=== PATIENT | male | born 1980 | race Caucasian/White ===

== ENCOUNTER 2018-01-05 17:48 | Emergency (ER) | payer SELFPAY ==
[~2018-01-05] VITALS: Ht 175.3 cm; Wt 72.6 kg
[2018-01-05] MEDS ORDERED: SODIUM CHLORIDE 0.9% 1000ML 1,000 ML IV SCH (19:15)
[2018-01-05 20:04] LABS: BASOPHILS # (AUTO) 0.1 (0.0-0.1); BASOPHILS % 0.5 % (0.0-1.0); EOSINOPHILS # (AUTO) 0.3 (0.0-0.4); EOSINOPHILS % 3.1 % (0.0-6.0); HEMOGLOBIN 15.8 g/dL (14.0-18.0); LYMPHOCYTES # (AUTO) 2.7 (1.0-3.2); LYMPHOCYTES % 27.8 % (18.0-39.1); MEAN CORPUSCULAR HEMOGLOBIN 31.2 pg (28-32); MEAN CORPUSCULAR HGB CONC 35.1 g/dL (31-35); MEAN CORPUSCULAR VOLUME 88.8 fL (81-99); MONOCYTES # (AUTO) 0.7 (0.2-0.8); MONOCYTES % 7.5 % (4.4-11.3); NEUTROPHILS # (AUTO) 5.8 (2.1-6.9); NEUTROPHILS % 60.6 % (38.7-80.0); PLATELET COUNT 255 x10e3/uL (140-360); RED BLOOD COUNT 5.07 x10e6/uL (4.3-5.7); RED CELL DISTRIBUTION WIDTH 12.7 % (11.7-14.4)
[2018-01-05 20:20] LABS: BILIRUBIN,URINE NEGATIVE (NEGATIVE); CLARITY,URINE CLEAR (CLEAR); COLOR,URINE YELLOW (YELLOW); KETONES,URINE NEGATIVE (NEGATIVE); LEUKOCYTE ESTERASE ,URINE NEGATIVE (NEGATIVE); NITRITE,URINE NEGATIVE (NEGATIVE); PROTEIN,URINE DIPSTICK TRACE (NEGATIVE); URINE UROBILINOGEN 0.2 mg/dL (0.2 - 1)
[2018-01-05 20:22] LABS: EPITHELIAL CELLS,URINE RARE /LPF; WBC,URINE (MAN) 0-5 /HPF (0-5)
[2018-01-05 20:23] LABS: ANION GAP 19.8 mmol/L (8-16); BLOOD UREA NITROGEN 17 mg/dL (7-26); BUN/CREATININE RATIO 16 (6-25); CALCIUM 10.2 mg/dL (8.4-10.2); CARBON DIOXIDE 23 mmol/L (22-29); CHLORIDE 101 mmol/L (98-107); CREATININE, SERUM 1.04 mg/dL (0.72-1.25); EST GLOMERULAR FILTRATION RATE > 60 ML/MIN (60-); GLUCOSE 79 mg/dL (74-118); MAGNESIUM 2.4 MG/DL (1.3-2.1); POTASSIUM 3.8 mmol/L (3.5-5.1); SODIUM 140 mmol/L (136-145)
--- OUTSIDE RECORDS SUMMARY | 2018-02-18 03:35 | XMS REPORT | Clinical Summary ---
Author Author [facility] Organization [facility] Address Unknown Phone Unavailable Care Team Providers Care Social Insurance Analyst Name Role Phone Fabiano Hansen MD PCP Allergies Active Allergy Reactions Severity Noted Date Comments Ketorolac Hives 08/18/2016 Tramadol Hives 08/15/2016 Current Medications Prescription Sig. Disp. Refills Start End Date Status Date methadone (DOLOPHINE) 10 Take 70 mg by mouth daily Active MG tablet , Active Problems Problem Noted Date Chest pain 08/18/2016 Encounters Date Type Specialty Care Team Description 12/22/2017 Emergency Emergency Medicine Jessenia Holloway MD Methamphetamine abuse (Primary Dx); Hallucination 06/07/2017 Emergency Emergency Medicine Stefani Burnette Drug abuse (Primary Dx); Essential hypertension; Chest pain, unspecified type 06/02/2017 Emergency Emergency Medicine Jessenia Holloway MD Methamphetamine abuse Matt Gorman MD (Primary Dx) after 01/04/2017 Social History Tobacco Use Types Packs/Day Years Used Date Current Every Day Smoker Cigarettes Smokeless Tobacco: Never Used Alcohol Use Drinks/Week oz/Week Comments Yes "last drink was a couple of weeks ago" Sex Assigned at Date Recorded Not on file Last Filed Vital Signs Vital Sign Reading Time Taken Blood Pressure 122/80 12/22/2017 9:10 PM CDT Pulse 89 12/22/2017 9:10 PM CDT Temperature 37 C (98.6 F) 12/22/2017 9:10 PM CDT Respiratory Rate 16 12/22/2017 9:10 PM CDT Oxygen Saturation 98% 12/22/2017 9:10 PM CDT Inhaled Oxygen - - Concentration Weight 33 kg (72 lb 12.8 oz) 12/22/2017 3:42 PM CDT Height 175.3 cm (5' 9") 12/22/2017 3:42 PM CDT Body Mass Index 10.75 12/22/2017 3:42 PM CDT Plan of Treatment Health Maintenance Due Date Last Done Comments INFLUENZA VACCINE 12/16/2017 Procedures Procedure Name Priority Date/Time Associated Diagnosis Comments ALCOHOL LEVEL, BLOOD STAT 12/22/2017 Results for this 4:55 PM CDT procedure are in the results section. ZZESTIMATED GFR STAT 12/22/2017 Results for this 4:55 PM CDT procedure are in the results section. URINALYSIS SCREEN AND STAT 12/22/2017 Results for this MICROSCOPY, WITH REFLEX 4:55 PM CDT procedure are in the TO CULTURE results section. SALICYLATE LEVEL STAT 12/22/2017 Results for this 4:55 PM CDT procedure are in the results section. ACETAMINOPHEN LEVEL STAT 12/22/2017 Results for this 4:55 PM CDT procedure are in the results section. URINE DRUGS OF ABUSE STAT 12/22/2017 Results for this SCREEN 4:55 PM CDT procedure are in the results section. HC COMPLETE BLD COUNT STAT 12/22/2017 Results for this W/AUTO DIFF 4:55 PM CDT procedure are in the results section. THYROID STIMULATING STAT 12/22/2017 Results for this HORMONE 4:55 PM CDT procedure are in the results section. T4, FREE STAT 12/22/2017 Results for this 4:55 PM CDT procedure are in the results section. COMPREHENSIVE METABOLIC STAT 12/22/2017 Results for this PANEL 4:55 PM CDT procedure are in the results section. URINE CULTURE STAT 12/22/2017 Results for this 4:55 PM CDT procedure are in the results section. ECG ED PRELIMINARY Routine 06/08/2017 Results for this INTERPRETATION 5:50 PM ENDODONTICS DENTIST procedure are in the results section. CT ANGIOGRAM PE CHEST STAT 06/07/2017 Results for this 4:00 PM ENDODONTICS DENTIST procedure are in the results section. XR CHEST 2 VW STAT 06/07/2017 Results for this 2:46 PM ENDODONTICS DENTIST procedure are in the results section. D-DIMER STAT 06/07/2017 Results for this 2:30 PM ENDODONTICS DENTIST procedure are in the results section. ZZESTIMATED GFR STAT 06/07/2017 Results for this 2:30 PM ENDODONTICS DENTIST procedure are in the results section. URINE DRUGS OF ABUSE STAT 06/07/2017 Results for this SCREEN 2:30 PM ENDODONTICS DENTIST procedure are in the results section. URINALYSIS SCREEN AND STAT 06/07/2017 Results for this MICROSCOPY, WITH REFLEX 2:30 PM ENDODONTICS DENTIST procedure are in the TO CULTURE results section. TROPONIN STAT 06/07/2017 Results for this 2:30 PM ENDODONTICS DENTIST procedure are in the results section. CREATINE KINASE, TOTAL STAT 06/07/2017 Results for this (CPK) 2:30 PM ENDODONTICS DENTIST procedure are in the results section. COMPREHENSIVE METABOLIC STAT 06/07/2017 Results for this PANEL 2:30 PM ENDODONTICS DENTIST procedure are in the results section. HC COMPLETE BLD COUNT STAT 06/07/2017 Results for this W/AUTO DIFF 2:30 PM ENDODONTICS DENTIST procedure are in the results section. URINE CULTURE STAT 06/07/2017 Results for this 2:30 PM ENDODONTICS DENTIST procedure are in the results section. ECG 12-LEAD STAT 06/07/2017 Results for this 2:14 PM ENDODONTICS DENTIST procedure are in the results section. ECG ED PRELIMINARY Routine 06/02/2017 Results for this INTERPRETATION 9:45 AM ENDODONTICS DENTIST procedure are in the results section. XR CHEST 1 VW PORTABLE STAT 06/02/2017 Results for this 6:02 AM ENDODONTICS DENTIST procedure are in the results section. ZZESTIMATED GFR STAT 06/02/2017 Results for this 5:23 AM ENDODONTICS DENTIST procedure are in the results section. SALICYLATE LEVEL STAT 06/02/2017 Results for this 5:23 AM ENDODONTICS DENTIST procedure are in the results section. ACETAMINOPHEN LEVEL STAT 06/02/2017 Results for this 5:23 AM ENDODONTICS DENTIST procedure are in the results section. CREATINE KINASE, TOTAL STAT 06/02/2017 Results for this (CPK) 5:23 AM ENDODONTICS DENTIST procedure are in the results section. TROPONIN STAT 06/02/2017 Results for this 5:23 AM ENDODONTICS DENTIST procedure are in the results section. HC COMPLETE BLD COUNT STAT 06/02/2017 Results for this W/AUTO DIFF 5:23 AM ENDODONTICS DENTIST procedure are in the results section. COMPREHENSIVE METABOLIC STAT 06/02/2017 Results for this PANEL 5:23 AM ENDODONTICS DENTIST procedure are in the results section. ECG 12-LEAD Routine 06/02/2017 Results for this 5:12 AM ENDODONTICS DENTIST procedure are in the results section. after 01/04/2017 Results * Urinalysis screen and microscopy, with reflex to culture (12/22/2017 4:55 PM) Only the most recent of 2 results within the time period is included. Specimen site Clean catch [facility] DEPARTMENT OF PATHOLOGY AND GENOMIC MEDICINE Color, UA Yellow [facility] DEPARTMENT OF PATHOLOGY AND GENOMIC MEDICINE Appearance, UA Clear [facility] DEPARTMENT OF PATHOLOGY AND GENOMIC MEDICINE Specific gravity, UA 1.025 1.001 - 1.035 [facility] DEPARTMENT OF PATHOLOGY AND GENOMIC MEDICINE pH, UA 6.0 5.0 - 8.5 [facility] DEPARTMENT OF PATHOLOGY AND GENOMIC MEDICINE Protein, UA Negative Negative [facility] DEPARTMENT OF PATHOLOGY AND GENOMIC MEDICINE Glucose, UA Negative Negative [facility] DEPARTMENT OF PATHOLOGY AND GENOMIC MEDICINE Ketones, UA Negative Negative [facility] DEPARTMENT OF PATHOLOGY AND GENOMIC MEDICINE Bilirubin, UA Negative Negative [facility] DEPARTMENT OF PATHOLOGY AND GENOMIC MEDICINE Blood, UA Negative Negative [facility] DEPARTMENT OF PATHOLOGY AND GENOMIC MEDICINE Nitrite, UA Negative Negative [facility] DEPARTMENT OF PATHOLOGY AND GENOMIC MEDICINE Urobilinogen, UA 2.0 (A) <2.0 [facility] DEPARTMENT OF PATHOLOGY AND GENOMIC MEDICINE Leukocyte esterase, UA Negative Negative [facility] DEPARTMENT OF PATHOLOGY AND GENOMIC MEDICINE Epithelial cells, UA Few /HPF [facility] DEPARTMENT OF PATHOLOGY AND GENOMIC MEDICINE WBC, UA 0-5 0 - 1 /HPF [facility] DEPARTMENT OF PATHOLOGY AND GENOMIC MEDICINE RBC, UA 0-5 0 - 5 /HPF [facility] DEPARTMENT OF PATHOLOGY AND GENOMIC MEDICINE Bacteria, UA None seen None seen [facility] DEPARTMENT OF PATHOLOGY AND GENOMIC MEDICINE Yeast, UA None seen [facility] DEPARTMENT OF PATHOLOGY AND GENOMIC MEDICINE Yeast with pseudohyphae, None seen [facility] PATHOLOGY AND GENOMIC MEDICINE Specimen Urine Performing Organization Address City/State/Zipcode Phone Number [facility] [place] [address] [place] [address] PATHOLOGY AND GENOMIC MEDICINE * Estimated GFR (12/22/2017 4:55 PM) Only the most recent of 3 results within the time period is included. GFR Non Af Amer >90 mL/min/1.73 m2 [facility] DEPARTMENT OF PATHOLOGY AND GENOMIC MEDICINE GFR Af Amer >90 mL/min/1.73 m2 [facility] DEPARTMENT OF Comment: PATHOLOGY AND Chronic kidney disease: <60 GENOMIC MEDICINE mL/min/1.73m2 Kidney failure: <15 mL/min/1.73m2 The estimated GFR is calculated from the IDMS-traceable Modification of Diet in Renal Disease Equation. The accuracy of the calculation is poor when the creatinine is normal. Calculated values >90 mL/min/1.73m2 are not reported. This equation has not been validated in children (<18 years), women, the elderly (>70 years), or ethnic groups other than Caucasians and Americans. Specimen Plasma specimen Performing Organization Address [facility] Phone Number [facility] [address] Center[facility] [place] [id number] PATHOLOGY AND [facility] MEDICINE * Urine drugs of abuse screen (12/22/2017 4:55 PM) Only the most recent of 2 results within the time period is included. Amphetamine screen, urine Positive (A) [facility] DEPARTMENT OF PATHOLOGY AND GENOMIC MEDICINE Methamphetamine screen, Positive (A) [facility] DEPARTMENT OF urine PATHOLOGY AND GENOMIC MEDICINE Barbiturate screen, urine Negative [facility] DEPARTMENT OF PATHOLOGY AND GENOMIC MEDICINE Benzodiazepine screen, Negative [facility] DEPARTMENT OF urine PATHOLOGY AND GENOMIC MEDICINE Cocaine screen, urine Negative [facility] DEPARTMENT OF PATHOLOGY AND GENOMIC MEDICINE Methadone screen, urine Positive (A) [facility] DEPARTMENT OF PATHOLOGY AND GENOMIC MEDICINE Opiates screen, urine Negative [facility] DEPARTMENT OF PATHOLOGY AND GENOMIC MEDICINE Phencyclidine screen, Negative [facility] DEPARTMENT OF urine PATHOLOGY AND GENOMIC MEDICINE Cannabinoid screen, urine Negative [facility] DEPARTMENT OF PATHOLOGY AND GENOMIC MEDICINE Tricyclic screen, urine Negative [facility] DEPARTMENT OF Comment: PATHOLOGY AND Drug screen minimum GENOMIC MEDICINE concentration of detectability Amphetamines 1000 ng/mL Methamphetamines 1000 ng/mL Barbiturates 300 ng/mL Benzodiazepines 300 ng/mL Cocaine 300 ng/mL Methadone 300 ng/mL Opiates 300 ng/mL Phencyclidine 25 ng/mL Cannabinoids 50 ng/mL Tricyclics 1000 ng/mL Negative test results indicates presumptive evidence of lack of clinically significant drug concentration in this urine specimen. Positive test results are presumptive evidence of clinically significant drug concentration in this urine specimen. Testing performed for medical purposes only. Specimen Urine Performing Organization Address City/[facility] Phone Number [facility] [place] [place] [place] [address] [place] [address] PATHOLOGY AND [employer] MEDICINE * CBC with platelet and differential (12/22/2017 4:55 PM) Only the most recent of 3 results within the time period is included. WBC 7.65 4.50 - 11.00 k/uL [facility] DEPARTMENT OF PATHOLOGY AND GENOMIC MEDICINE RBC 5.15 4.40 - 6.00 m/uL [facility] DEPARTMENT OF PATHOLOGY AND GENOMIC MEDICINE HGB 15.8 14.0 - 18.0 g/dL [facility] DEPARTMENT OF PATHOLOGY AND GENOMIC MEDICINE HCT 46.2 41.0 - 51.0 % [facility] DEPARTMENT OF PATHOLOGY AND GENOMIC MEDICINE MCV 89.7 82.0 - 100.0 fL [facility] DEPARTMENT OF PATHOLOGY AND GENOMIC MEDICINE MCH 30.7 27.0 - 34.0 pg [facility] DEPARTMENT OF PATHOLOGY AND GENOMIC MEDICINE MCHC 34.2 31.0 - 37.0 g/dL [facility] DEPARTMENT OF PATHOLOGY AND GENOMIC MEDICINE RDW - SD 41.0 37.0 - 55.0 fL [facility] DEPARTMENT OF PATHOLOGY AND GENOMIC MEDICINE MPV 9.3 8.8 - 13.2 fL [facility] DEPARTMENT OF PATHOLOGY AND GENOMIC MEDICINE Platelet count 254 150 - 400 k/uL [facility] DEPARTMENT OF PATHOLOGY AND GENOMIC MEDICINE Nucleated RBC 0.00 /100 WBC [facility] DEPARTMENT OF PATHOLOGY AND GENOMIC MEDICINE Neutrophils 56.3 39.0 - 69.0 % [facility] DEPARTMENT OF PATHOLOGY AND GENOMIC MEDICINE Lymphocytes 31.9 25.0 - 45.0 % [facility] DEPARTMENT OF PATHOLOGY AND GENOMIC MEDICINE Monocytes 7.2 0.0 - 10.0 % [facility] DEPARTMENT OF PATHOLOGY AND GENOMIC MEDICINE Eosinophils 3.8 0.0 - 5.0 % [facility] DEPARTMENT OF PATHOLOGY AND GENOMIC MEDICINE Basophils 0.7 0.0 - 1.0 % [facility] DEPARTMENT OF PATHOLOGY AND GENOMIC MEDICINE Specimen Blood Performing Organization Address [facility] Phone Number [address] [place] [address] PATHOLOGY AND GENOMIC MEDICINE * Urine culture (12/22/2017 4:55 PM) Only the most recent of 2 results within the time period is included. Urine culture SEE COMMENTComment: [facility] DEPARTMENT OF Bacteriuria screen negative. PATHOLOGY AND GENOMIC MEDICINE Specimen Urine Performing Organization Address [facility] Phone Number [address] [place] [address] PATHOLOGY AND [facility] MEDICINE * Thyroid stimulating hormone (12/22/2017 4:55 PM) TSH 3.84 0.27 - 4.20 uIU/mL [facility] DEPARTMENT OF PATHOLOGY AND GENOMIC MEDICINE Specimen Plasma specimen Performing Organization Address [facility] Phone Number [address] [place] [address] PATHOLOGY AND [facility] MEDICINE * T4, free (12/22/2017 4:55 PM) T4, free 1.45 0.90 - 1.70 ng/dL [facility] DEPARTMENT OF PATHOLOGY AND GENOMIC MEDICINE Specimen Plasma specimen Performing Organization Address [facility] Phone Number [address] [place] [address] PATHOLOGY AND GENOMIC MEDICINE * Alcohol level, blood (12/22/2017 4:55 PM) Alcohol None Detected mg/dL [facility] DEPARTMENT OF Comment: PATHOLOGY AND Normal GENOMIC MEDICINE None Detected Legal Intoxication in [place] 80 mg/dL (0.08%) - Whole Blood Toxic Concentration 200 mg/dL (0.2%) Potentially Fatal 3 50 - 500 mg/dL (0.35 - 0.5%) Alcohol percent None Detected % [facility] DEPARTMENT OF PATHOLOGY AND GENOMIC MEDICINE Specimen Plasma specimen Performing Organization Address [facility] Phone Number [address] [place] [address] PATHOLOGY AND GENOMIC MEDICINE * Acetaminophen level (12/22/2017 4:55 PM) Only the most recent of 2 results within the time period is included. Acetaminophen level <15.0 10.0 - 30.0 ug/mL [facility] DEPARTMENT OF Comment: PATHOLOGY AND Therapeutic GENOMIC MEDICINE 10-30 ug/mL Possible Toxicity 150-200 ug/mL Probable Toxicity >200 ug/mL Specimen Plasma specimen Performing Organization Address [facility] Phone Number [address] [place] [address] PATHOLOGY AND GENOMIC MEDICINE * Salicylate level (12/22/2017 4:55 PM) Only the most recent of 2 results within the time period is included. Salicylate <0.3 (L) 3.0 - 30.0 mg/dL [facility] DEPARTMENT OF PATHOLOGY AND GENOMIC MEDICINE Specimen Plasma specimen Performing Organization Address [facility] Phone Number [address] [place] [address] PATHOLOGY AND GENOMIC MEDICINE * Comprehensive metabolic panel (12/22/2017 4:55 PM) Only the most recent of 3 results within the time period is included. Sodium 141 135 - 148 mEq/L [facility] DEPARTMENT OF PATHOLOGY AND GENOMIC MEDICINE Potassium 4.0 3.5 - 5.0 mEq/L [facility] DEPARTMENT OF PATHOLOGY AND GENOMIC MEDICINE Chloride 102 98 - 112 mEq/L [facility] DEPARTMENT OF PATHOLOGY AND GENOMIC MEDICINE CO2 28 24 - 31 mEq/L [facility] DEPARTMENT OF PATHOLOGY AND GENOMIC MEDICINE Anion gap 11@ANIO 7 - 15 mEq/L [facility] DEPARTMENT OF PATHOLOGY AND GENOMIC MEDICINE BUN 11 6 - 20 mg/dL [facility] DEPARTMENT OF PATHOLOGY AND GENOMIC MEDICINE Creatinine 0.9 0.7 - 1.2 mg/dL [facility] DEPARTMENT OF PATHOLOGY AND GENOMIC MEDICINE Glucose 74 65 - 99 mg/dL [facility] DEPARTMENT OF PATHOLOGY AND GENOMIC MEDICINE Calcium 9.6 8.3 - 10.2 mg/dL [facility] DEPARTMENT OF PATHOLOGY AND GENOMIC MEDICINE Protein 8.2 6.3 - 8.3 g/dL [facility] DEPARTMENT OF Comment: PATHOLOGY AND GENOMIC MEDICINE 4.6-7.0 g/dL 1 week 4.4-7.6 g/dL 7 months-1year 5.1-7.3 g/dL 1-2 years 5.6-7 .5 g/dL >3 years 6.0-8 .0 g/dL 18-150 6.3-8.3 g/dL Albumin 4.9 3.5 - 5.0 g/dL [facility] DEPARTMENT OF PATHOLOGY AND GENOMIC MEDICINE A/G ratio 1.5 0.7 - 3.8 [facility] DEPARTMENT OF PATHOLOGY AND GENOMIC MEDICINE Alkaline phosphatase 86 40 - 129 U/L [facility] DEPARTMENT OF PATHOLOGY AND GENOMIC MEDICINE AST 19 10 - 50 U/L [facility] DEPARTMENT OF PATHOLOGY AND GENOMIC MEDICINE ALT 44 5 - 50 U/L [facility] DEPARTMENT OF PATHOLOGY AND GENOMIC MEDICINE Total bilirubin 0.7 0.0 - 1.2 mg/dL [facility] DEPARTMENT OF PATHOLOGY AND GENOMIC MEDICINE Specimen Plasma specimen Performing Organization Address City/State/Zipcode Phone Number [facility] [place] [address] [place] [address] PATHOLOGY AND GENOMIC MEDICINE * ECG ED Preliminary Interpretation - NOT AN ORDER (06/08/2017 5:50 PM) Only the most recent of 2 results within the time period is included. Narrative Performed At Stefani Burnette MD 06/08/2017 5:50 PM ECG ED Preliminary Interpretation - Not an Order Performed by: STEFANI BURNETTE Authorized by: STEFANI BURNETTE ECG reviewed by ED Physician in the absence of a incident analyst: yes Interpretation: Interpretation: abnormal Rate: ECG rate: 115 ECG rate assessment: tachycardic Rhythm: Rhythm: sinus tachycardia Ectopy: Ectopy: none QRS: QRS axis: Normal Conduction: Conduction: normal ST segments: ST segments: Normal T waves: T waves: normal * CT Angiogram Pe Chest (06/07/2017 4:00 PM) Narrative Performed At [facility] CHEST CLINICAL HISTORY: chest pain TECHNIQUE: CT angiographic images of the chest were obtained during intravenous administration of iodinated contrast. Computerized reformatted images and 3-D MIP images were also obtained and archived (CT pulmonary embolus protocol). COMPARISON: August 18, 2016 IMPRESSION: There is no evidence of pulmonary embolism Scattered calcified granuloma are unchanged from prior No new suspicious focal pulmonary nodules or infiltrates present Calcified perihilar lymph nodes from prior granulomatous disease No pleural or pericardial effusions are present Calcified granuloma in the spleen [facility]-[id number] Procedure Note Interface, Radiology Results Incoming - 06/07/2017 4:15 PM ENDODONTICS DENTIST EXAMINATION: CT ANGIOGRAM PE CHEST CLINICAL HISTORY: chest pain TECHNIQUE: CT angiographic images of the chest were obtained during intravenous administration of iodinated contrast. Computerized reformatted images and 3-D MIP images were also obtained and archived (CT pulmonary embolus protocol). COMPARISON: August 18, 2016 IMPRESSION: There is no evidence of pulmonary embolism Scattered calcified granuloma are unchanged from prior No new suspicious focal pulmonary nodules or infiltrates present Calcified perihilar lymph nodes from prior granulomatous disease No pleural or pericardial effusions are present Calcified granuloma in the spleen [facility]-[id number] Performing Organization Address City/State/Zipcode Phone Number [employer] [address] [place] [address] * XR Chest 2 Vw (06/07/2017 2:46 PM) Narrative Performed At EXAMINATION: XR CHEST 2 VW [facility] CLINICAL HISTORY: Chest Pain, Chest pain COMPARISON: June 02 IMPRESSION: Calcified granuloma in the right upper lobe The lungs are clear Heart is nonenlarged Bony structures within normal limits Calcified right perihilar lymph nodes [facility]-[id number] Procedure Note Interface, Radiology Results Incoming - 06/07/2017 2:52 PM ENDODONTICS DENTIST EXAMINATION: XR CHEST 2 VW CLINICAL HISTORY: Chest Pain, Chest pain COMPARISON: June 02 IMPRESSION: Calcified granuloma in the right upper lobe The lungs are clear Heart is nonenlarged Bony structures within normal limits Calcified right perihilar lymph nodes [facility]-[id number] Performing Organization Address City/[facility]/Zipcode Phone Number [facility] [address] [place] [address] * Troponin (06/07/2017 2:30 PM) Only the most recent of 2 results within the time period is included. Troponin <0.300 0.000 - 0.300 ng/mL [facility] DEPARTMENT OF Comment: PATHOLOGY AND 0.30 - 1.49 GENOMIC MEDICINE ng/ml May indicate increased risk of acute coronary syndrome. >=1.5 ng/ml Consistent with acute myocardial infarction. The diagnostic value of a single normal or non-diagnostic result is questionable. Serial samples at 2-6 hour intervals are required to rule out acute myocardial injury. Specimen Plasma specimen Performing Organization Address [facility] Phone Number [facility] [id number] [place] [address] [address] [place] [phone] PATHOLOGY AND [employer] * D-dimer (06/07/2017 2:30 PM) D-dimer 0.82 (H) 0.00 - 0.40 ug/mL FEU [facility] DEPARTMENT OF Comment: PATHOLOGY AND Units are ug/ml Fibrinogen GENOMIC MEDICINE Equivalent Unit. When combined with low clinical probability, D-dimer results of less than 0.5 ug/ml FEU have a good negative predictive value in excluding PE or DVT. For D-dimer results greater than 0.5 ug/ml FEU further testing is indicated if PE or DVT is suspected clinically. Elevated D-dimer results have been reported in DVT, PE, and DIC cases and may indicate the presence of a clot. D-dimer results may be elevated due to old age, , inflammatory diseases, trauma, post-operative states, sepsis, and malignancies. Specimen Blood Performing Organization Address [facility] Phone Number [facility] [id number] [place] [address] [place] [address] PATHOLOGY AND [employer] MEDICINE * Creatine kinase, total (CPK) (06/07/2017 2:30 PM) Only the most recent of 2 results within the time period is included. Creatine kinase 41 39 - 308 U/L [facility] DEPARTMENT OF PATHOLOGY AND GENOMIC MEDICINE Specimen Plasma specimen Performing Organization Address [facility] Phone Number [facility] [place] [address] [place] [address] PATHOLOGY AND GENOMIC MEDICINE * ECG 12 lead (06/07/2017 2:14 PM) Only the most recent of 2 results within the time period is included. Ventricular rate 115 [facility] Atrial rate 115 [facility] IA interval 120 [facility] QRSD interval 88 [facility] QT interval 302 [facility] QTC interval 417 [facility] P axis 1 46 [facility] QRS axis 1 39 [facility] T wave axis 62 [facility] EKG impression Sinus tachycardia-Possible [facility] MUSE Left atrial enlargement-ST elevation, consider inferior injury or acute infarct-^^ ^^ ACUTE [place] ^^ ^^-Abnormal ECG-In automated comparison with ECG of 02-JUN-2017 05:12,-ST elevation now present in Inferior qgecf-Ryf-dwegnsep change in ST segment in Lateral leads- Performing Organization Address [facility] Phone Number [facility] [employer] [address] [place] [address] * XR Chest 1 Vw Portable (06/02/2017 6:02 AM) Narrative Performed At EXAMINATION: XR CHEST 1 VW PORTABLE [facility] CLINICAL HISTORY: Chest Pain COMPARISON: 08/18/2016 IMPRESSION: Calcified granuloma is seen of the right upper lung zone. Small right pleural effusion. No consolidations or pneumothorax. Cardiomediastinal silhouette is within normal limits. No acute osseous abnormalities. [facility]-[id number] Procedure Note Interface, Radiology Results Incoming - 06/02/2017 6:21 AM ENDODONTICS DENTIST EXAMINATION: XR CHEST 1 VW PORTABLE CLINICAL HISTORY: Chest Pain COMPARISON: 08/18/2016 IMPRESSION: Calcified granuloma is seen of the right upper lung zone. Small right pleural effusion. No consolidations or pneumothorax. Cardiomediastinal silhouette is within normal limits. No acute osseous abnormalities. [facility]-[id number] Performing Organization Address [facility] Phone Number [facility] [address] [place] [address] after 01/04/2017
== END 2018-01-05 21:45 | disposition left against medical advice (07) ==
LOC: ER 17:48
DX: M79.1 Myalgia (principal)
CPT/HCPCS: 36415; 80048; 81001; 82550; 83735; 85025

== ENCOUNTER 2018-07-21 10:41 | Emergency (ER) | payer SELFPAY ==
[~2018-07-21] VITALS: Ht 175.3 cm; Wt 72.6 kg
--- OUTSIDE RECORDS SUMMARY | 2018-07-21 10:44 | XMS REPORT | Clinical Summary ---
Author Author [employer] Address Unknown Phone Unavailable Care Team Providers Care Order Entry Representative Name Role Phone Asked, No Pcp PCP Unavailable Allergies Comments Active Allergy Reactions Severity Noted Date Ketorolac Hives 08/18/2016 Tramadol Hives 08/15/2016 Medications End Date Status Medication Sig Dispensed Refills Start Date Active methadone (DOLOPHINE) 10 Take 70 mg by 0 MG tablet mouth daily , 03/05/2018 ALPRAZolam (XANAX) 0.25 Take 1 tablet 14 tablet 0 02/26/201 MG tablet (0.25 mg 8 total) by mouth 2 (two) times a day as needed for anxiety for up to 7 days. 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 Last Filed Vital Signs Time Taken Vital Sign Reading 03/06/2018 3:30 PM CDT Blood Pressure 111/78 03/06/2018 3:30 PM CDT Pulse 90 03/06/2018 9:49 AM CDT Temperature 37.4 C (99.3 F) 03/06/2018 3:30 PM CDT Respiratory Rate 17 03/06/2018 3:30 PM CDT Oxygen Saturation 98% - Inhaled Oxygen - Concentration 03/06/2018 9:47 AM CDT Weight 77.1 kg (170 lb) 03/06/2018 9:47 AM CDT Height 175.3 cm (5' 9") 03/06/2018 9:47 AM CDT Body Mass Index 25.1 Plan of Treatment Health Maintenance Due Date Last Done Comments INFLUENZA VACCINE 12/16/2017 Procedures Comments Procedure Name Priority Date/Time Associated Diagnosis TROPONIN Timed 03/06/2018 1:04 PM CDT URINE DRUGS OF ABUSE STAT 03/06/2018 SCREEN 12:30 PM CDT URINALYSIS SCREEN AND Routine 03/06/2018 MICROSCOPY, WITH REFLEX 12:[address] HEAD WO CONTRAST STAT 03/06/2018 10:36 AM CDT T4, FREE STAT 03/06/2018 10:18 AM CDT THYROID STIMULATING STAT 03/06/2018 HORMONE 10:18 AM CDT ACETAMINOPHEN LEVEL STAT 03/06/2018 10:18 AM CDT SALICYLATE LEVEL STAT 03/06/2018 10:18 AM CDT ALCOHOL LEVEL, BLOOD STAT 03/06/2018 10:18 AM CDT ESTIMATED GFR STAT 03/06/2018 10:11 AM CDT B NATRIURETIC PEPTIDE STAT 03/06/2018 10:11 AM CDT TROPONIN STAT 03/06/2018 10:11 AM CDT COMPREHENSIVE METABOLIC STAT 03/06/2018 PANEL 10:11 AM CDT HC COMPLETE BLD COUNT STAT 03/06/2018 W/AUTO DIFF 10:11 AM CDT ECG ED PRELIMINARY Routine 03/06/2018 INTERPRETATION 10:05 AM CDT ECG 12-LEAD STAT 03/06/2018 9:53 AM CDT T4, FREE STAT 02/26/2018 11:00 AM CDT T3, FREE Routine 02/26/2018 11:00 AM CDT URINE DRUGS OF ABUSE STAT 02/26/2018 SCREEN 10:31 AM CDT URINALYSIS SCREEN AND STAT 02/26/2018 MICROSCOPY, WITH REFLEX 10:31 AM CDT TO CULTURE URINE CULTURE STAT 02/26/2018 10:31 AM CDT THYROID STIMULATING STAT 02/26/2018 HORMONE 10:19 AM CDT ESTIMATED GFR STAT 02/26/2018 10:19 AM CDT ACETAMINOPHEN LEVEL STAT 02/26/2018 10:19 AM CDT SALICYLATE LEVEL STAT 02/26/2018 10:19 AM CDT ALCOHOL LEVEL, BLOOD STAT 02/26/2018 10:19 AM CDT TROPONIN STAT 02/26/2018 10:19 AM CDT COMPREHENSIVE METABOLIC STAT 02/26/2018 PANEL 10:19 AM CDT HC COMPLETE BLD COUNT STAT 02/26/2018 W/AUTO DIFF 10:19 AM CDT ECG ED PRELIMINARY Routine 02/26/2018 INTERPRETATION 10:12 AM CDT ECG 12-LEAD STAT 02/26/2018 9:58 AM CDT ALCOHOL LEVEL, BLOOD STAT 12/22/2017 4:55 PM CDT ZZESTIMATED GFR STAT 12/22/2017 4:55 PM CDT URINALYSIS SCREEN AND STAT 12/22/2017 MICROSCOPY, WITH REFLEX 4:55 PM CDT TO CULTURE SALICYLATE LEVEL STAT 12/22/2017 4:55 PM CDT ACETAMINOPHEN LEVEL STAT 12/22/2017 4:55 PM CDT URINE DRUGS OF ABUSE STAT 12/22/2017 SCREEN 4:55 PM CDT HC COMPLETE BLD COUNT STAT 12/22/2017 W/AUTO DIFF 4:55 PM CDT THYROID STIMULATING STAT 12/22/2017 HORMONE 4:55 PM CDT T4, FREE STAT 12/22/2017 4:55 PM CDT COMPREHENSIVE METABOLIC STAT 12/22/2017 PANEL 4:55 PM CDT URINE CULTURE STAT 12/22/2017 4:55 PM CDT after 2017 Results * Troponin (03/06/2018 1:04 PM CDT) Only the most recent of 3 results within the time period is included. Troponin <0.300 0.000 - 0.300 ng/mL [facility] DEPARTMENT OF Comment: PATHOLOGY AND 0.30 - 1.49 GENOMIC MEDICINE ng/mlMay indicate increased risk of acute coronary syndrome. >=1.5 ng/ml Consistent with acute myocardial infarction. The diagnostic value of a single normal or non-diagnostic result is questionable.Serial samples at 2-6 hour intervals are required to rule out acute myocardial injury. Specimen Plasma specimen Performing Organization Address City/State/Zipcode Phone Number [facility] [place] [address] [place] [address] PATHOLOGY AND GENOMIC MEDICINE * Urinalysis screen and microscopy, with reflex to culture (03/06/2018 12:30 PM CDT) Only the most recent of 3 results within the time period is included. Specimen site Clean catch [facility] DEPARTMENT OF PATHOLOGY AND GENOMIC MEDICINE Color, UA Straw [facility] DEPARTMENT OF PATHOLOGY AND GENOMIC MEDICINE Appearance, UA Clear [facility] DEPARTMENT OF PATHOLOGY AND GENOMIC MEDICINE Specific gravity, UA 1.008 1.001 - 1.035 [facility] DEPARTMENT OF PATHOLOGY AND GENOMIC MEDICINE pH, UA 7.0 5.0 - 8.5 [facility] DEPARTMENT OF PATHOLOGY AND GENOMIC MEDICINE Protein, UA Negative Negative [facility] DEPARTMENT OF PATHOLOGY AND GENOMIC MEDICINE Glucose, UA Negative Negative [facility] DEPARTMENT OF PATHOLOGY AND GENOMIC MEDICINE Ketones, UA Negative Negative [facility] DEPARTMENT OF PATHOLOGY AND GENOMIC MEDICINE Bilirubin, UA Negative Negative [facility] DEPARTMENT OF PATHOLOGY AND GENOMIC MEDICINE Blood, UA Negative Negative [facility] DEPARTMENT OF PATHOLOGY AND GENOMIC MEDICINE Nitrite, UA Negative Negative [facility] DEPARTMENT OF PATHOLOGY AND GENOMIC MEDICINE Urobilinogen, UA Negative <2.0 [facility] DEPARTMENT OF PATHOLOGY AND GENOMIC MEDICINE Leukocyte esterase, UA Negative Negative [facility] DEPARTMENT OF PATHOLOGY AND GENOMIC MEDICINE Round epithelial cells, Few 0 - 1 /HPF [facility] DEPARTMENT [facility] PATHOLOGY AND GENOMIC MEDICINE WBC, UA 0-5 0 - 1 /HPF [facility] DEPARTMENT OF PATHOLOGY AND GENOMIC MEDICINE RBC, UA 0-5 0 - 5 /HPF [facility] DEPARTMENT OF PATHOLOGY AND GENOMIC MEDICINE Bacteria, UA Trace None seen [facility] DEPARTMENT OF PATHOLOGY AND GENOMIC MEDICINE Yeast, UA None seen [facility] DEPARTMENT OF PATHOLOGY AND GENOMIC MEDICINE Yeast with pseudohyphae, None seen [facility] DEPARTMENT OF PATHOLOGY AND GENOMIC MEDICINE Specimen Urine Performing Organization Address City/State/Zipcode Phone Number [facility] [address] [place] [address] PATHOLOGY AND GENOMIC MEDICINE * Urine drugs of abuse screen (03/06/2018 12:30 PM CDT) Only the most recent of 3 results within the time period is included. Amphetamine screen, urine Negative [facility] DEPARTMENT OF PATHOLOGY AND GENOMIC MEDICINE Methamphetamine screen, Negative [facility] DEPARTMENT OF urine PATHOLOGY AND GENOMIC MEDICINE Barbiturate screen, urine Negative [facility] DEPARTMENT OF PATHOLOGY AND GENOMIC MEDICINE Benzodiazepine screen, Negative [facility] DEPARTMENT OF urine PATHOLOGY AND GENOMIC MEDICINE Cocaine screen, urine Negative [facility] DEPARTMENT OF PATHOLOGY AND GENOMIC MEDICINE Methadone screen, urine Positive (A) [facility] DEPARTMENT OF PATHOLOGY AND GENOMIC MEDICINE Opiates screen, urine Negative [facility] DEPARTMENT OF PATHOLOGY AND GENOMIC MEDICINE Phencyclidine screen, Negative [facility] DEPARTMENT OF urine PATHOLOGY AND GENOMIC MEDICINE Cannabinoid screen, urine Positive (A) [facility] DEPARTMENT OF PATHOLOGY AND GENOMIC MEDICINE Tricyclic screen, urine Negative [facility] DEPARTMENT OF Comment: PATHOLOGY AND Drug [...] purposes only. Specimen Urine Performing Organization Address City/[facility]/Zipcode Phone Number [facility] [address] [place] [address] PATHOLOGY AND GENOMIC MEDICINE * CT Head Wo Contrast (03/06/2018 10:36 AM CDT) Narrative Performed At EXAMINATION:CT HEAD WO CONTRAST [facility] CLINICAL HISTORY:worsening hallucinationsstrange behavior COMPARISON:None. TECHNIQUE: Noncontrast head CT performed using radiation dose reduction techniques.Technical factors are evaluated and adjusted to ensure appropriate moderation of exposure.Automated dose management technology is applied to adjust radiation exposure while achieving a diagnostic quality image. FINDINGS: No evidence of acute intracranial hemorrhage, mass, mass effect, midline shift, or acute infarct. Ventricles and sulci are normal in appearance for patient's age.Basal cisterns are clear. Calvarium is intact. Orbits are normal in appearance. Mild scattered paranasal sinus mucosal thickening. Mastoid air cells are clear. IMPRESSION: 1. No CT evidence of acute intracranial abnormality. [facility]-[id number] Procedure Note Interface, Radiology Results Incoming - 03/06/2018 10:41 AM CDT EXAMINATION: CT HEAD WO CONTRAST CLINICAL HISTORY: worsening hallucinations strange behavior COMPARISON: None. TECHNIQUE: Noncontrast head CT performed using radiation dose reduction techniques. Technical factors are evaluated and adjusted to ensure appropriate moderation of exposure. Automated dose management technology is applied to adjust radiation exposure while achieving a diagnostic quality image. FINDINGS: No evidence of acute intracranial hemorrhage, mass, mass effect, midline shift, or acute infarct. Ventricles and sulci are normal in appearance for patient's age. Basal cisterns are clear. Calvarium is intact. Orbits are normal in appearance. Mild scattered paranasal sinus mucosal thickening. Mastoid air cells are clear. IMPRESSION: 1. No CT evidence of acute intracranial abnormality. [facility]-[id number] Performing Organization Address City/[facility] Phone Number [facility] [address] [place] [address] * Thyroid stimulating hormone (03/06/2018 10:18 AM CDT) Only the most recent of 3 results within the time period is included. TSH 2.98 0.27 - 4.20 uIU/mL [facility] DEPARTMENT OF PATHOLOGY AND GENOMIC MEDICINE Specimen Plasma specimen Performing Organization Address [facility] Phone Number [address] [place] [address] PATHOLOGY AND GENOMIC MEDICINE * T4, free (03/06/2018 10:18 AM CDT) Only the most recent of 3 results within the time period is included. T4, free 1.35 0.90 - 1.70 ng/dL [facility] DEPARTMENT OF PATHOLOGY AND GENOMIC MEDICINE Specimen Plasma specimen Performing Organization Address [facility] Phone Number [address] [place] [address] PATHOLOGY AND GENOMIC [facility] * Alcohol level, blood (03/06/2018 10:18 AM CDT) Only the most recent of 3 results within the time period is included. Alcohol None Detected mg/dL [facility] DEPARTMENT OF Comment: PATHOLOGY AND Normal GENOMIC MEDICINE None Detected Legal Intoxication in [place]80 mg/dL (0.08%) - Whole Blood Toxic Concentration 200 mg/dL (0.2%) Potentially Fatal3 50 - 500 mg/dL (0.35 - 0.5%) Alcohol percent None Detected % [facility] DEPARTMENT OF PATHOLOGY AND GENOMIC MEDICINE Specimen Plasma specimen Performing Organization Address [facility] Phone Number [address] [place] [address] PATHOLOGY AND GENOMIC MEDICINE * Acetaminophen level (03/06/2018 10:18 AM CDT) Only the most recent of 3 results within the time period is included. Acetaminophen level <15.0 10.0 - 30.0 ug/mL [facility] DEPARTMENT OF Comment: PATHOLOGY AND Therapeutic GENOMIC MEDICINE 10-30 ug/mL Possible Toxicity 150-200 ug/mL Probable Toxicity >200 ug/mL Specimen Plasma specimen Performing Organization Address [facility] Phone Number [address] [place] [address] PATHOLOGY AND GENOMIC MEDICINE * Salicylate level (03/06/2018 10:18 AM CDT) Only the most recent of 3 results within the time period is included. Salicylate <0.3 (L) 3.0 - 30.0 mg/dL [facility] DEPARTMENT OF PATHOLOGY AND GENOMIC MEDICINE Specimen Plasma specimen Performing Organization Address [facility] Phone Number [address] [place] [address] PATHOLOGY AND GENOMIC [facility] * Estimated GFR (03/06/2018 10:11 AM CDT) Only the most recent of 2 results within the time period is included. Estimated GFR >=90 mL/min/1.73 m2 [facility] DEPARTMENT OF Comment: PATHOLOGY AND [employer] GENOMIC MEDICINE rpretation G1 >=90 Normal or high G2 60-89Mildly decreased [id number] Mildly to moderately decreased [id number] Moderately to severely decreased G4 15-29Severely decreased G5 <15Kidney failure The eGFR was calculated using the Chronic Kidney Disease Epidemiology Collaboration (CKD-EPI) equation. Interpretation is based on recommendations of the National Kidney Foundation-Kidney Disease Outcomes Quality Initiative (NKF-KDOQI) published in 2014. Specimen Plasma specimen Performing Organization Address [facility] Phone Number [address] [place] [address] PATHOLOGY [facility] * CBC with platelet and differential (03/06/2018 10:11 AM CDT) Only the most recent of 3 results within the time period is included. WBC 10.82 4.50 - 11.00 k/uL [facility] DEPARTMENT OF PATHOLOGY AND GENOMIC MEDICINE RBC 5.24 4.40 - 6.00 m/uL [facility] DEPARTMENT OF PATHOLOGY AND GENOMIC MEDICINE HGB 16.2 14.0 - 18.0 g/dL [facility] DEPARTMENT OF PATHOLOGY AND GENOMIC MEDICINE HCT 46.1 41.0 - 51.0 % [facility] DEPARTMENT OF PATHOLOGY AND GENOMIC MEDICINE MCV 88.0 82.0 - 100.0 fL [facility] DEPARTMENT OF PATHOLOGY AND GENOMIC MEDICINE MCH 30.9 27.0 - 34.0 pg [facility] DEPARTMENT OF PATHOLOGY AND GENOMIC MEDICINE MCHC 35.1 31.0 - 37.0 g/dL [facility] DEPARTMENT OF PATHOLOGY AND GENOMIC MEDICINE RDW - SD 40.1 37.0 - 55.0 fL [facility] DEPARTMENT OF PATHOLOGY AND GENOMIC MEDICINE MPV 9.6 8.8 - 13.2 fL [facility] DEPARTMENT OF PATHOLOGY AND GENOMIC MEDICINE Platelet count 267 150 - 400 k/uL [facility] DEPARTMENT OF PATHOLOGY AND GENOMIC MEDICINE Nucleated RBC 0.00 /100 WBC [facility] DEPARTMENT OF PATHOLOGY AND GENOMIC MEDICINE Neutrophils 77.8 (H) 39.0 - 69.0 % [facility] DEPARTMENT OF PATHOLOGY AND GENOMIC MEDICINE Lymphocytes 15.6 (L) 25.0 - 45.0 % [facility] DEPARTMENT OF PATHOLOGY AND GENOMIC MEDICINE Monocytes 5.0 0.0 - 10.0 % [facility] DEPARTMENT OF PATHOLOGY AND GENOMIC MEDICINE Eosinophils 0.8 0.0 - 5.0 % [facility] DEPARTMENT OF PATHOLOGY AND GENOMIC MEDICINE Basophils 0.4 0.0 - 1.0 % [facility] DEPARTMENT OF PATHOLOGY AND GENOMIC MEDICINE Specimen Blood Performing Organization Address [facility] Phone Number [address] [place] [address] PATHOLOGY [facility] * B natriuretic peptide (03/06/2018 10:11 AM CDT) BNP 3 0 - 100 pg/mL [facility] DEPARTMENT OF PATHOLOGY AND GENOMIC MEDICINE Specimen Blood Performing Organization Address City/[facility] Phone Number [address] [place] [address] PATHOLOGY [facility] * Comprehensive metabolic panel (03/06/2018 10:11 AM CDT) Only the most recent of 3 results within the time period is included. Sodium 139 135 - 148 mEq/L [facility] DEPARTMENT OF PATHOLOGY AND GENOMIC MEDICINE Potassium 4.0 3.5 - 5.0 mEq/L [facility] DEPARTMENT OF PATHOLOGY AND GENOMIC MEDICINE Chloride 101 98 - 112 mEq/L [facility] DEPARTMENT OF PATHOLOGY AND GENOMIC MEDICINE CO2 25 24 - 31 mEq/L [facility] DEPARTMENT OF PATHOLOGY AND GENOMIC MEDICINE Anion gap 13@ANIO 7 - 15 mEq/L [facility] DEPARTMENT OF PATHOLOGY AND GENOMIC MEDICINE BUN 10 6 - 20 mg/dL [facility] DEPARTMENT OF PATHOLOGY AND GENOMIC MEDICINE Creatinine 0.80 0.70 - 1.20 mg/dL [facility] DEPARTMENT OF PATHOLOGY AND GENOMIC MEDICINE Glucose 113 (H) 65 - 99 mg/dL [facility] DEPARTMENT OF PATHOLOGY AND GENOMIC MEDICINE Calcium 10.0 8.3 - 10.2 mg/dL [facility] DEPARTMENT OF PATHOLOGY AND GENOMIC MEDICINE Protein 8.4 (H) 6.3 - 8.3 g/dL [facility] DEPARTMENT OF Comment: PATHOLOGY AND [place] GENOMIC MEDICINE 4.6-7.0 g/dL 1 week 4.4-7.6 g/dL 7 months-1year 5.1-7.3 g/dL 1-2 years5.6-7 .5 g/dL >3 years6.0-8 .0 g/dL 18-150 6.3-8.3 g/dL Albumin 5.1 (H) 3.5 - 5.0 g/dL [facility] DEPARTMENT OF PATHOLOGY AND GENOMIC MEDICINE A/G ratio 1.5 0.7 - 3.8 [facility] DEPARTMENT OF PATHOLOGY AND GENOMIC MEDICINE Alkaline phosphatase 85 40 - 129 U/L [facility] DEPARTMENT OF PATHOLOGY AND GENOMIC MEDICINE AST 19 10 - 50 U/L [facility] DEPARTMENT OF PATHOLOGY AND GENOMIC MEDICINE ALT 22 5 - 50 U/L [facility] DEPARTMENT OF PATHOLOGY AND GENOMIC MEDICINE Total bilirubin 0.8 0.0 - 1.2 mg/dL [facility] DEPARTMENT OF PATHOLOGY AND GENOMIC MEDICINE Specimen Plasma specimen Performing Organization Address City/State/Zipcode Phone Number [facility] [place] [address] [place] [address] PATHOLOGY AND GENOMIC MEDICINE * ECG ED Preliminary Interpretation - NOT AN ORDER (03/06/2018 10:05 AM CDT) Only the most recent of 2 results within the time period is included. Narrative Performed At Jd Lundberg MD 03/09/20185:52 PM ECG ED Preliminary Interpretation - Not an Order Performed by: JD LUNDBERG Authorized by: JD LUNDBERG ECG reviewed by ED Physician in the absence of a varnishing unit operator: yes (read at [id number]) Previous ECG: Previous ECG:Compared to current Comparison ECG info:02/26/18 Similarity:No change Interpretation: Interpretation: normal Rate: ECG rate:80 ECG rate assessment: normal Rhythm: Rhythm: sinus rhythm Ectopy: Ectopy: none QRS: QRS axis:Normal Conduction: Conduction: normal ST segments: ST segments:Normal T waves: T waves: non-specific * ECG 12 lead (03/06/2018 9:53 AM CDT) Only the most recent of 2 results within the time period is included. Ventricular rate 80 [facility] Atrial rate 80 [facility] ID interval 122 [facility] QRSD interval 84 [facility] QT interval 350 [facility] QTC interval 403 [facility] P axis 1 28 [facility] QRS axis 1 25 [facility] T wave axis 74 [facility] EKG impression ^^^ Poor data quality, H MUSE interpretation may be adversely affected-Normal sinus rhythm-Nonspecific T wave abnormality-Abnormal ECG-In automated comparison with ECG of 26-FEB-2018 09:58,-No significant change was found- Performing Organization Address City/[facility]/Zipcode Phone Number [facility] MUSE [address] [place] [address] * T3, free (02/26/2018 11:00 AM CDT) T3, free 3.3 2.4 - 4.2 pg/mL [facility] Comment: REFERENCE INTERVAL: Triiodothyronine, Free (Free T3) Access complete set of age- and/or gender-specific reference intervals for this test in the [facility] Test Directory ([employer]). Performed by [facility], [address] [place], [place] [id number] [email or web address], Jluis Vera MD - Lab. Director Specimen Serum Performing Organization Address [facility] Phone Number [facility] [address] [place] [address] * Urine culture (02/26/2018 10:31 AM CDT) Only the most recent of 2 results within the time period is included. Urine culture SEE COMMENTComment: [facility] DEPARTMENT OF Bacteriuria screen negative. PATHOLOGY AND GENOMIC MEDICINE Specimen Urine Performing Organization Address City/[facility]/Zipcode Phone Number [facility] DEPARTMENT [address] [place] [address] PATHOLOGY AND GENOMIC MEDICINE * Estimated GFR (12/22/2017 4:55 PM CDT) GFR Non Af Amer >90 mL/min/1.73 m2 [facility] DEPARTMENT OF PATHOLOGY AND GENOMIC MEDICINE GFR Af Amer >90 mL/min/1.73 m2 [facility] DEPARTMENT OF Comment: PATHOLOGY AND Chronic [...] Americans. Specimen Plasma specimen Performing Organization Address City/State/Zipcode Phone Number [facility] DEPARTMENT [facility] [place] [address] PATHOLOGY AND GENOMIC MEDICINE after 2017 Advance Directives Patient has advance care planning documents on file. For more information, kareen turner contact: Flash Jackson [address] [place] [address]
--- OUTSIDE RECORDS SUMMARY | 2018-07-21 10:45 | XMS REPORT ---
Author Author [facility] Address Unknown Phone Unavailable Care Team Providers Care Certified Veterinary Technician Name Role Phone Unavailable Unavailable Payers Payer Name Policy Type Policy Number Effective Date Expiration Date Problems This patient has no known problems. Allergies, Adverse Reactions, Alerts Allergy Name Allergy Type Status Severity Reaction(s) Onset Date Inactive Date Treating Clinician Comments No Known Allergies DA Active U 2018-06-21 00:00:00 No Known Allergies DA Active U 2017-12-22 00:00:00 Medications This patient has no known medications. Results Test Description Test Time Test Comments Text Results Atomic Results Result Comments - XR CHEST 2 V 2018-06-21 19:02:00 Name: HAYLEE QUINTANILLA [facility] : 1980 Age/S:37 /M [address] [facility] Unit#:[id number] Loc: [place] [address] Phys: Tra Rodriguez MD Dis Date: PHONE #: [phone] Status: REG ER FAX #: [phone] Exam Date: 06/21/2018 Reason: chest pain, wheezing, cough EXAMS: CPT CODE: [id number] XR CHEST 2 V [id number] REASON FOR EXAM: chest pain, wheezing, cough Exam Order Date: 06/21/2018 5:47 PM Ordering M.DYasmin: Tra Rodriguez MD PROCEDURE: - XR CHEST 2 V COMPARISON: 03/09/2018 FINDINGS: PA and lateral views of the chest show stable appearance of the small calcified granulomas. No evidence of consolidation. No evidence of effusion. The heart size is within normal limits. Pulmonary vasculatures are unremarkable. The osseous structures ar e grossly intact. IMPRESSION: No active disease. at 1902 Reported and signed by: Henrry Jason M.D. CC: Tra Rodriguez MD Technologist: Natacha Rdz Trnscrpt Data: 06/21/2018 (1901) t.SDR.VTL Orig Print D/T: S: 06/21/2018 (1905) PAGE 1 Signed Report BASIC METABOLIC PANEL 2018-06-21 18:49:00 SODIUM (test code=NA) 140 mmol/L 135-148 POTASSIUM (test code=K) 4.2 mmol/L 3.5-5.1 CHLORIDE (test code=CL) 105 mmol/L 101-109 CARBON DIOXIDE (test code=CO2) 25.7 mmol/L 21-32 ANION GAP (test code=GAP) 14 mmol/L 10-20 GLUCOSE (test code=GLU) 87 mg/dL 74-106 BLOOD UREA NITROGEN (test code=BUN) 17 mg/dL 3-21 GLOMERULAR FILTRATION RATE (test code=GFR) > 60 mL/min >=60 Estimated GFR by using Modified MDRD formula.Chronic kidney disease is defined as either kidney damageor GFR <60 mL/min/1.73 m2 for >3 months. CREATININE (test code=CREAT) 0.67 mg/dL 0.55-1.3 BUN/CREATININE RATIO (test code=BUN/CREA) 25.4 10-20 CALCIUM (test code=CA) 9.0 mg/dL 8.4-10.2 [id number] 18:49:00* Test Item Value Reference Range Comments TROPONIN-I (test code=TROPI) <0.015 ng/mL 0.00-0.056 BASIC METABOLIC [id number] 18:38:00* Test Item Value Reference Range Comments SODIUM (test code=NA) 140 mmol/L 135-148 POTASSIUM (test code=K) 4.2 mmol/L 3.5-5.1 CHLORIDE (test code=CL) 105 mmol/L 101-109 CARBON DIOXIDE (test code=CO2) 25.7 mmol/L 21-32 ANION GAP (test code=GAP) 14 mmol/L 10-20 GLUCOSE (test code=GLU) 87 mg/dL 74-106 BLOOD UREA NITROGEN (test code=BUN) 17 mg/dL 3-21 GLOMERULAR FILTRATION RATE (test code=GFR) > 60 mL/min >=60 Estimated GFR by using Modified MDRD formula.Chronic kidney disease is defined as either kidney damageor GFR <60 mL/min/1.73 m2 for >3 months. CREATININE (test code=CREAT) 0.67 mg/dL 0.55-1.3 BUN/CREATININE RATIO (test code=BUN/CREA) 25.4 10-20 CALCIUM (test code=CA) 9.0 mg/dL 8.4-10.2 [id number] 18:38:00* Test Item Value Reference Range Comments TROPONIN-I (test code=TROPI) ng/mL 0-0.045 CBC W/O [id number] 18:34:00* Test Item Value Reference Range Comments WHITE BLOOD CELL (test code=WBC) 9.5 K/mm3 4.5-12.5 RED BLOOD CELL (test code=RBC) 4.70 mill/mm3 4.0-5.8 HEMOGLOBIN (test code=HGB) 14.7 gram/dL 13.0-17.5 HEMATOCRIT (test code=HCT) 42.7 % 42.0-52.0 MEAN CELL VOLUME (test code=MCV) 90.9 fL 80-98 MEAN CELL HGB (test code=MCH) 31.3 picogram 27.0-33.0 MEAN CELL HGB CONCETRATION (test code=MCHC) 34.4 gram/dL 33.0-36.0 RED CELL DISTRIBUTION WIDTH (test code=RDW) 13.5 % 11.6-16.2 RED CELL DISTRIBUTION WIDTH SD (test code=RDW-SD) 44.0 fL 39.2-49.5 PLATELET COUNT (test code=PLT) 204 K/mm3 150-450 MEAN PLATELET VOLUME (test code=MPV) 9.4 fL 6.7-11.0
--- NOTE | 2018-07-21 11:39 | Diagnostic Imaging Report ---
CT BRAIN W/WO CONTRAST-HOPD HISTORY: Facial swelling; auditory disturbance COMPARISON: None. TECHNIQUE: Noncontrast axial scans were obtained from skull base to the vertex. Coronal and sagittal reconstructions obtained from the axial data. One or more of the following dose reduction techniques were used: Automated exposure control, adjustment of the mA and/or kV according to patient size, and/or utilization of iterative reconstruction technique. Beam hardening and noise artifacts obscure some details. DISCUSSION: Scalp/Skull: Unremarkable. Brain sulci: Appropriate for patient's age. Ventricles: Normal in size and configuration. No hydrocephalus. Extra-axial spaces: No masses or fluid collections. Parenchyma: Questionable asymmetric focal hypodensity in the right centrum semiovale may be artifactual. There is no significant mass effect. Otherwise, no hemorrhage, or large vascular territory acute infarct. Dural sinuses: No abnormal densities. Sellar/Suprasellar region: Intact. Skull base: Intact. Incidental findings: There is mild mucosal thickening in the anterior ethmoid air cells. IMPRESSION: 1. Questionable asymmetric focal hypodensity in the right centrum semiovale may be artifactual. No significant mass effect. This can be further characterized with brain MRI if clinically indicated. 2. No other intracranial abnormalities. Signed by: Dr. Carson Torres M.D. on 07/21/2018 11:36 AM
[2018-07-21] MEDS ORDERED: HYDROXYZINE HCL25 MG PO (12:06)
--- NOTE | 2018-07-21 12:41 | Diagnostic Imaging Report ---
EXAMINATION: CXR 2 VIEW - HOPD INDICATION: Chest pain, facial swelling. COMPARISON: None FINDINGS: TUBES and LINES: None. LUNGS: Lungs are well inflated. There is no evidence of pneumonia or pulmonary edema. There is a 1.1 cm high density nodule within the right upper lung zone, consistent with calcified granuloma. PLEURA: No pleural effusion or pneumothorax. HEART AND MEDIASTINUM: There is mild enlargement of the cardiomediastinal silhouette. Prominent right pericardial fat pad. BONES AND SOFT TISSUES: No acute osseous abnormality. Status post median sternotomy. The inferior most wire appears broken. UPPER ABDOMEN: No free air under the diaphragm. Surgical clips project over the upper abdomen. IMPRESSION: Mild cardiomegaly without evidence of pulmonary edema. Broken inferior most median sternotomy wire, age indeterminate. Signed by: Dr. Daysi Montaño MD on 07/21/2018 12:37 PM
[2018-07-21 13:15] LABS: FREE THYROXINE INDEX 2.6915 (1.4-3.8); THYROID STIMULATING HORMONE 3.23 uIU/mL (0.350-4.940)
== END 2018-07-21 12:23 | disposition home or self-care (01) ==
LOC: FSED 10:41
DX: R07.89 Other chest pain (principal); K02.9 Dental caries, unspecified; M26.629 Arthralgia of temporomandibular joint, unspecified side
CPT/HCPCS: 36415; 70470; 71046; 84436; 84443; 84479; 93005; 99284

== ENCOUNTER 2018-12-07 15:40 | Emergency (ER) | payer SELFPAY ==
[~2018-12-07] VITALS: Ht 175.3 cm; Wt 88.5 kg
[~2018-12-07 15:40] MED LIST: HYDROXYZINE HCL25 MG PO
--- OUTSIDE RECORDS SUMMARY | 2018-12-07 15:42 | XMS REPORT | Clinical Summary ---
Author Author [facility] Address Unknown Phone Unavailable Care Team Providers Care Gallery Or Museum Curator Name Role Phone Asked, No Pcp PCP [...] Dx); Hallucination 12/22/2017 Emergency Emergency Medicine after 12/06/2017 Social History Date Tobacco Use Types Packs/Day [...] Due Date Last Done Comments INFLUENZA VACCINE 12/16/2018 Procedures Comments Procedure Name Priority Date/Time Associated [...] CULTURE STAT 12/22/2017 4:55 PM CDT after 12/06/2017 Results * Troponin (03/06/2018 1:04 PM CDT) Only the most recent of 3 results within the time period is included. [facility] Troponin <0.300 0.000 - 0.300 ng/mL [facility] Comment: DEPARTMENT OF 0.30 - 1.49 PATHOLOGY AND ng/mlMay GENOMIC indicate increased risk of MEDICINE acute coronary syndrome. >=1.5 ng/ml Consistent with acute myocardial infarction. The diagnostic value of a single normal or non-diagnostic result is questionable.Serial samples at 2-6 hour intervals are required to rule out acute myocardial injury. Specimen Plasma specimen Performing Organization Address City/State/Zipcode Phone [place] [address] [place] [address] PATHOLOGY AND GENOMIC MEDICINE * Urinalysis screen and microscopy, with reflex to culture (03/06/2018 12:30 PM CDT) Only the most recent of 3 results within the time period is included. Pathologist [facility] Specimen site Clean catch [facility] DEPARTMENT OF PATHOLOGY AND GENOMIC MEDICINE Color, UA Straw [facility] DEPARTMENT OF PATHOLOGY AND GENOMIC MEDICINE Appearance, UA Clear [facility] DEPARTMENT OF PATHOLOGY AND GENOMIC MEDICINE Specific 1.008 1.001 - 1.035 [facility] gravity, DEPARTMENT OF PATHOLOGY AND GENOMIC MEDICINE pH, UA 7.0 5.0 - 8.5 [facility] DEPARTMENT OF PATHOLOGY AND GENOMIC MEDICINE Protein, UA Negative Negative [facility] DEPARTMENT OF PATHOLOGY AND GENOMIC MEDICINE Glucose, UA Negative Negative [facility] DEPARTMENT OF PATHOLOGY AND GENOMIC MEDICINE Ketones, UA Negative Negative [facility] DEPARTMENT OF PATHOLOGY AND GENOMIC MEDICINE Bilirubin, UA Negative Negative [facility] DEPARTMENT OF PATHOLOGY AND GENOMIC MEDICINE Blood, UA Negative Negative [facility] DEPARTMENT OF PATHOLOGY AND GENOMIC MEDICINE Nitrite, UA Negative Negative [facility] DEPARTMENT OF PATHOLOGY AND GENOMIC MEDICINE Urobilinogen, Negative <2.0 [facility] UA DEPARTMENT OF PATHOLOGY AND GENOMIC MEDICINE Leukocyte Negative Negative [facility] esterase, DEPARTMENT OF PATHOLOGY AND GENOMIC MEDICINE Round Few 0 - 1 /HPF [facility] epithelial DEPARTMENT OF cells, PATHOLOGY AND GENOMIC MEDICINE WBC, UA 0-5 0 - 1 /HPF [facility] DEPARTMENT OF PATHOLOGY AND GENOMIC MEDICINE RBC, UA 0-5 0 - 5 /HPF [facility] DEPARTMENT OF PATHOLOGY AND GENOMIC MEDICINE Bacteria, UA Trace None seen [facility] DEPARTMENT OF PATHOLOGY AND GENOMIC MEDICINE Yeast, UA None seen [facility] DEPARTMENT OF PATHOLOGY AND GENOMIC MEDICINE Yeast with None seen [facility] pseudohyphae, DEPARTMENT OF UA PATHOLOGY AND GENOMIC MEDICINE Specimen Urine Performing Organization Address City/State/Zipcode Phone Number [place] [address] [place] [address] PATHOLOGY AND GENOMIC MEDICINE * Urine drugs of abuse screen (03/06/2018 12:30 PM CDT) Only the most recent of 3 results within the time period is included. Amphetamine Negative [facility] screen, urine DEPARTMENT OF PATHOLOGY AND GENOMIC MEDICINE Methamphetamine Negative [facility] screen, urine DEPARTMENT OF PATHOLOGY AND GENOMIC MEDICINE Barbiturate Negative [facility] screen, urine DEPARTMENT OF PATHOLOGY AND GENOMIC MEDICINE Benzodiazepine Negative [facility] screen, urine DEPARTMENT OF PATHOLOGY AND GENOMIC MEDICINE Cocaine screen, Negative [facility] urine DEPARTMENT OF PATHOLOGY AND GENOMIC MEDICINE Methadone Positive (A) [facility] screen, urine DEPARTMENT OF PATHOLOGY AND GENOMIC MEDICINE Opiates screen, Negative [facility] urine DEPARTMENT OF PATHOLOGY AND GENOMIC MEDICINE Phencyclidine Negative [facility] screen, urine DEPARTMENT OF PATHOLOGY AND GENOMIC MEDICINE Cannabinoid Positive (A) [facility] screen, urine DEPARTMENT OF PATHOLOGY AND GENOMIC MEDICINE Tricyclic Negative [facility] screen, urine Comment: DEPARTMENT OF Drug screen minimum PATHOLOGY AND concentration of detectability GENOMIC Amphetamines MEDICINE 1000 ng/mL Methamphetamines 1000 ng/mL Barbiturates 300 [...] purposes only. Specimen Urine Performing Organization Address City/[facility]/Zipcode Phone Number [facility] [address] [place] [address] PATHOLOGY AND GENOMIC MEDICINE * CT Head Wo Contrast (03/06/2018 10:36 AM CDT) Specimen Narrative Performed At EXAMINATION:CT HEAD WO CONTRAST [facility] HISTORY:worsening hallucinationsstrange behavior COMPARISON:None. TECHNIQUE: Noncontrast [...] No CT evidence of acute intracranial abnormality. [facility]-[id number] Procedure Note [facility], Radiology Results Incoming - 03/06/2018 10:41 AM [...] No CT evidence of acute intracranial abnormality. [facility]-[id number] Performing Organization Address City/[facility] Phone Number [facility] [address] [place] [address] * Thyroid stimulating hormone (03/06/2018 10:18 AM CDT) Only the most recent of 3 results within the time period is included. TSH 2.98 0.27 - 4.20 uIU/mL [facility] DEPARTMENT OF PATHOLOGY AND GENOMIC MEDICINE Specimen Plasma specimen Performing Organization Address [facility] Phone Number [address] [place] [address] PATHOLOGY AND GENOMIC MEDICINE * T4, free (03/06/2018 10:18 AM CDT) Only the most recent of 3 results within the time period is included. T4, free 1.35 0.90 - 1.70 ng/dL [facility] DEPARTMENT OF PATHOLOGY AND GENOMIC MEDICINE Specimen Plasma specimen Performing Organization Address [facility] Phone Number [address] [place] [address] PATHOLOGY AND GENOMIC MEDICINE * Alcohol level, blood (03/06/2018 10:18 AM CDT) Only the most recent of 3 results within the time period is included. Alcohol None Detected mg/dL [facility] Comment: DEPARTMENT OF Normal PATHOLOGY AND None GENOMIC Detected MEDICINE Legal Intoxication in [place]80 mg/dL (0.08%) - Whole Blood Toxic Concentration 200 mg/dL (0.2%) Potentially Fatal3 50 - 500 mg/dL (0.35 - 0.5%) Alcohol percent None Detected % [facility] DEPARTMENT OF PATHOLOGY AND GENOMIC MEDICINE Specimen Plasma specimen Performing Organization Address [facility] Phone Number [facility] DEPARTMENT [address] [place] [address] PATHOLOGY AND GENOMIC MEDICINE * Acetaminophen level (03/06/2018 10:18 AM CDT) Only the most recent of 3 results within the time period is included. Acetaminophen <15.0 10.0 - 30.0 ug/mL [facility] level Comment: DEPARTMENT OF Therapeutic PATHOLOGY AND 10-30 GENOMIC ug/mL MEDICINE Possible Toxicity 150-200 ug/mL Probable Toxicity >200 ug/mL Specimen Plasma specimen Performing Organization Address [facility] Phone Number [address] [place] [address] PATHOLOGY AND GENOMIC MEDICINE * Salicylate level (03/06/2018 10:18 AM CDT) Only the most recent of 3 results within the time period is included. Salicylate <0.3 (L) 3.0 - 30.0 mg/dL [facility] DEPARTMENT OF PATHOLOGY AND GENOMIC MEDICINE Specimen Plasma specimen Performing Organization Address City/[facility] Phone Number [address] [place] [address] PATHOLOGY AND GENOMIC [facility] * Estimated GFR (03/06/2018 10:11 AM CDT) Only the most recent of 2 results within the time period is included. Pathologist [facility] Estimated GFR >=90 mL/min/1.73 m2 [facility] Comment: DEPARTMENT OF [facility] PATHOLOGY AND rpretation GENOMIC MEDICINE >=90 Normal or high G2 60-89Mildly decreased [id number] Mildly to moderately decreased P4d74-86 Moderately to severely decreased G4 15-29Severely decreased G5 <15Kidney failure The eGFR was calculated using the Chronic Kidney Disease Epidemiology Collaboration (CKD-EPI) equation. Interpretation is based on recommendations of the National Kidney Foundation-Kidney Disease Outcomes Quality Initiative (NKF-KDOQI) published in 2014. Specimen Plasma specimen Performing Organization Address City/[facility] Phone Number [address] [place] [address] PATHOLOGY AND [place] * CBC with platelet and differential (03/06/2018 10:11 AM CDT) Only the most recent of 3 results within the time period is included. WBC 10.82 4.50 - 11.00 k/uL [facility] DEPARTMENT OF PATHOLOGY AND GENOMIC MEDICINE RBC 5.24 4.40 - 6.00 m/uL [facility] DEPARTMENT OF PATHOLOGY AND GENOMIC MEDICINE HGB 16.2 14.0 - 18.0 g/dL [facility] DEPARTMENT OF PATHOLOGY AND GENOMIC MEDICINE HCT 46.1 41.0 - 51.0 % [facility] DEPARTMENT OF PATHOLOGY AND GENOMIC MEDICINE MCV 88.0 82.0 - 100.0 fL [facility] DEPARTMENT OF PATHOLOGY AND GENOMIC MEDICINE MCH 30.9 27.0 - 34.0 pg [facility] DEPARTMENT OF PATHOLOGY AND GENOMIC MEDICINE MCHC 35.1 31.0 - 37.0 g/dL [facility] DEPARTMENT OF PATHOLOGY AND GENOMIC MEDICINE RDW - SD 40.1 37.0 - 55.0 fL [facility] DEPARTMENT OF PATHOLOGY AND GENOMIC MEDICINE MPV 9.6 8.8 - 13.2 fL [facility] DEPARTMENT OF PATHOLOGY AND GENOMIC MEDICINE Platelet count 267 150 - 400 k/uL [facility] DEPARTMENT OF PATHOLOGY AND GENOMIC MEDICINE Nucleated RBC 0.00 /100 WBC [facility] DEPARTMENT OF PATHOLOGY AND GENOMIC MEDICINE Neutrophils 77.8 (H) 39.0 - 69.0 % [facility] DEPARTMENT OF PATHOLOGY AND GENOMIC MEDICINE Lymphocytes 15.6 (L) 25.0 - 45.0 % [facility] DEPARTMENT OF PATHOLOGY AND GENOMIC MEDICINE Monocytes 5.0 0.0 - 10.0 % [facility] DEPARTMENT OF PATHOLOGY AND GENOMIC MEDICINE Eosinophils 0.8 0.0 - 5.0 % [facility] DEPARTMENT OF PATHOLOGY AND GENOMIC MEDICINE Basophils 0.4 0.0 - 1.0 % [facility] DEPARTMENT OF PATHOLOGY AND GENOMIC MEDICINE Specimen Blood Performing Organization Address [facility] Phone Number [address] [place] [address] [facility] * B natriuretic peptide (03/06/2018 10:11 AM CDT) Pathologist [facility] BNP 3 0 - 100 pg/mL [facility] DEPARTMENT PATHOLOGY [facility] GENOMIC MEDICINE Specimen Blood Performing Organization Address [facility] Phone Number [address] [place] [address] [facility] * Comprehensive metabolic panel (03/06/2018 10:11 AM CDT) Only the most recent of 3 results within the time period is included. Pathologist [facility] Sodium 139 135 - 148 mEq/L [facility] DEPARTMENT OF PATHOLOGY AND GENOMIC MEDICINE Potassium 4.0 3.5 - 5.0 mEq/L [facility] DEPARTMENT OF PATHOLOGY AND GENOMIC MEDICINE Chloride 101 98 - 112 mEq/L [facility] DEPARTMENT OF PATHOLOGY AND GENOMIC MEDICINE CO2 25 24 - 31 mEq/L [facility] DEPARTMENT OF PATHOLOGY AND GENOMIC MEDICINE Anion gap 13@ANIO 7 - 15 mEq/L [facility] DEPARTMENT OF PATHOLOGY AND GENOMIC MEDICINE BUN 10 6 - 20 mg/dL [facility] DEPARTMENT OF PATHOLOGY AND GENOMIC MEDICINE Creatinine 0.80 0.70 - 1.20 mg/dL [facility] DEPARTMENT OF PATHOLOGY AND GENOMIC MEDICINE Glucose 113 (H) 65 - 99 mg/dL [facility] DEPARTMENT OF PATHOLOGY AND GENOMIC MEDICINE Calcium 10.0 8.3 - 10.2 mg/dL [facility] DEPARTMENT OF PATHOLOGY AND GENOMIC MEDICINE Protein 8.4 (H) 6.3 - 8.3 g/dL [facility] Comment: DEPARTMENT OF [place] PATHOLOGY AND 4.6-7.0 g/dL GENOMIC 1 MEDICINE week 4.4-7.6 g/dL 7 months-1year 5.1-7.3 g/dL 1-2 years5.6-7 .5 g/dL >3 years6.0-8 .0 g/dL 18-150 6.3-8.3 g/dL Albumin 5.1 (H) 3.5 - 5.0 g/dL [facility] DEPARTMENT OF PATHOLOGY AND GENOMIC MEDICINE A/G ratio 1.5 0.7 - 3.8 [facility] DEPARTMENT OF PATHOLOGY AND GENOMIC MEDICINE Alkaline 85 40 - 129 U/L [facility] phosphatase DEPARTMENT OF PATHOLOGY AND GENOMIC MEDICINE AST 19 10 - 50 U/L [facility] DEPARTMENT OF PATHOLOGY AND GENOMIC MEDICINE ALT 22 5 - 50 U/L [facility] DEPARTMENT OF PATHOLOGY AND GENOMIC MEDICINE Total bilirubin 0.8 0.0 - 1.2 mg/dL [facility] DEPARTMENT OF PATHOLOGY AND GENOMIC MEDICINE Specimen Plasma specimen Performing Organization Address City/State/Zipcode Phone [place] [address] [place] [address] PATHOLOGY AND GENOMIC MEDICINE * ECG ED [...] ED Physician in the absence of a ethanol operator: yes (read at 0953) Previous ECG: [...] within the time period is included. Ventricular 80 [facility] rate Atrial rate 80 [facility] [place] interval 122 [facility] QRSD interval 84 [facility] QT interval 350 [facility] QTC interval 403 [facility] P axis 1 28 [facility] QRS axis 1 25 [facility] T wave axis 74 [facility] EKG impression ^^^ Poor data quality, [facility] MUSE interpretation may be adversely affected-Normal sinus rhythm-Nonspecific T wave abnormality-Abnormal ECG-In automated comparison with ECG of 26-FEB-2018 09:58,-No significant change was found- Specimen Performing Organization Address City/State/Zipcode Phone Number [facility] [address] [place] [address] * T3, free (02/26/2018 11:00 AM CDT) T3, free 3.3 2.4 - 4.2 pg/mL [facility] Comment: REFERENCE INTERVAL: Triiodothyronine, Free (Free T3) Access complete set of age- and/or gender-specific reference intervals for this test in the [facility] Test Directory ([facility]). Performed by [employer], [address] [place], [place] [id number] [email or web address], Jluis Vera MD - Lab. Director Specimen Serum Performing Organization Address City/[facility] Phone Number [facility] [address] [place] [address] * Urine culture (02/26/2018 10:31 AM CDT) Only the most recent of 2 results within the time period is included. Pathologist [facility] Urine culture SEE COMMENTComment: [facility] Bacteriuria screen negative. DEPARTMENT OF PATHOLOGY AND GENOMIC MEDICINE Specimen Urine Performing Organization Address City/[facility]/Zipcode Phone Number [address] [place] [address] PATHOLOGY AND GENOMIC MEDICINE * Estimated GFR (12/22/2017 4:55 PM CDT) Pathologist [facility] GFR Non Af Amer >90 mL/min/1.73 m2 [facility] DEPARTMENT OF PATHOLOGY AND GENOMIC MEDICINE GFR Af Amer >90 mL/min/1.73 m2 [facility] Comment: DEPARTMENT OF Chronic kidney disease: <60 PATHOLOGY AND mL/min/1.73m2 GENOMIC Kidney failure: <15 MEDICINE mL/min/1.73m2 The estimated GFR is calculated from [...] specimen Performing Organization Address City/State/Zipcode Phone Number [facility] [place] [address] [place] [address] PATHOLOGY AND GENOMIC MEDICINE after 12/06/2017 Advance Directives Patient has advance care planning documents on file. For more information, kareen turner contact: Flash Jackson [address] [place] [address]
== END 2018-12-07 16:15 | disposition home or self-care (01) ==
LOC: FSED 15:40
DX: H65.03 Acute serous otitis media, bilateral (principal); E03.9 Hypothyroidism, unspecified; F99 Mental disorder, not otherwise specified; F17.210 Nicotine dependence, cigarettes, uncomplicated
CPT/HCPCS: 99282

== ENCOUNTER 2021-06-01 16:05 | Emergency (ER) | payer OTHER ==
[~2021-06-01] VITALS: Ht 175.3 cm; Wt 97.5 kg
[2021-06-01 16:33] LABS: BASOPHILS # (AUTO) 0.1 (0.0-0.1); BASOPHILS % 0.6 % (0.0-1.0); EOSINOPHILS # (AUTO) 0.2 (0.0-0.4); EOSINOPHILS % 2.4 % (0.0-6.0); HEMATOCRIT 44.8 % (38.2-49.6); HEMOGLOBIN 15.5 g/dL (14.0-18.0); LYMPHOCYTES # (AUTO) 2.7 (1.0-3.2); LYMPHOCYTES % 27.1 % (18.0-39.1); MEAN CORPUSCULAR HEMOGLOBIN 32.4 pg (28-32); MEAN CORPUSCULAR HGB CONC 34.6 g/dL (31-35); MEAN CORPUSCULAR VOLUME 93.7 fL (81-99); MONOCYTES # (AUTO) 0.6 (0.2-0.8); MONOCYTES % 5.8 % (4.4-11.3); NEUTROPHILS # (AUTO) 6.3 (2.1-6.9); NEUTROPHILS % 63.8 % (38.7-80.0); PLATELET COUNT 217 x10e3/uL (140-360); RED BLOOD COUNT 4.78 x10e6/uL (4.3-5.7); RED CELL DISTRIBUTION WIDTH 13.2 % (11.7-14.4)
[2021-06-01 16:57] LABS: ALANINE AMINOTRANSFERASE 57 IU/L (0-55); ALBUMIN 4.2 g/dL (3.5-5.0); ALBUMIN/GLOBULIN RATIO 1.2 (0.8-2.0); ALKALINE PHOSPHATASE 98 IU/L (40-150); ANION GAP 9.6 mmol/L (8-16); BLOOD UREA NITROGEN 15 mg/dL (7-26); BUN/CREATININE RATIO 18 (6-25); CALCIUM 9.6 mg/dL (8.4-10.2); CARBON DIOXIDE 27 mmol/L (22-29); CHLORIDE 108 mmol/L (98-107); CREATINE KINASE 69 IU/L (30-200); CREATININE, SERUM 0.83 mg/dL (0.72-1.25); EST GLOMERULAR FILTRATION RATE 103 ML/MIN (60-); GLUCOSE 102 mg/dL (74-118); POTASSIUM 3.6 mmol/L (3.5-5.1); SODIUM 141 mmol/L (136-145)
== END 2021-06-01 18:51 | disposition home or self-care (01) ==
LOC: ER 18:26
DX: R07.9 Chest pain, unspecified (principal); R07.0 Pain in throat; E03.9 Hypothyroidism, unspecified; Z20.822 Contact with and (suspected) exposure to COVID-19
CPT/HCPCS: 36415; 71045; 80053; 82550; 82553; 84443; 84484; 85025; 93005; 99284; U0002

== ENCOUNTER 2022-01-10 17:47 | Emergency (ER) | payer OTHER ==
[~2022-01-10] VITALS: Ht 175.3 cm; Wt 99.1 kg
[2022-01-10] MEDS ORDERED: SODIUM CHLORIDE 0.9% 1000ML 1,000 ML IV STA (18:04)
[2022-01-10] MEDS ORDERED: FAMOTIDINE 20 MG/2 ML VIAL IV ONE (18:15)
[2022-01-10] MEDS ORDERED: ONDANSETRON HCL INJ 2MG/ML 2ML 2 MG/ML VIAL IV ONE (18:15)
[2022-01-10] MEDS ORDERED: SODIUM CHLORIDE 0.9% 1000ML 1,000 ML ONE (18:20)
[2022-01-10] MEDS ORDERED: OMEPRAZOLE40 MG PO (19:59)
[2022-01-10 20:16] VITALS: BP 162/92
== END 2022-01-10 20:16 | disposition home or self-care (01) ==
LOC: FSED 17:58
DX: M54.50 Low back pain, unspecified (principal); R10.13 Epigastric pain; K21.9 Gastro-esophageal reflux disease without esophagitis; E03.9 Hypothyroidism, unspecified; F32.A Depression, unspecified
CPT/HCPCS: 74176; 80053; 81003; 85025; 96374; 99284; J2405; J7030